=== PATIENT | female | born 1950 | race African-American/Black ===

== ENCOUNTER 2024-01-29 13:37 | Emergency (ER) | payer MEDICARE ==
[~2024-01-29] VITALS: Ht 157.5 cm; Wt 45.0 kg
[2024-01-29 13:49] VITALS: BP 141/59
[2024-01-29] MEDS ORDERED: SODIUM CHLORIDE 0.9% 1,000 ML IV ONE (13:50)
[2024-01-29] MEDS ORDERED: VANCOMYCIN HCL 1 GM in SODIUM CHLORIDE 0.9% 250 ML IV ONE (13:50)
[2024-01-29] MEDS ORDERED: cefTRIAXone SODIUM 2 GM in SODIUM CHLORIDE 0.9% 100 ML IV ONE (13:50)
[2024-01-29 14:14] VITALS: BP 198/156
[2024-01-29] MEDS ORDERED: AMLODIPINE BESYL5 MG PO (16:08)
[2024-01-29] MEDS ORDERED: DICLOFENAC SODI75 MG PO (16:09)
[2024-01-29 16:16] VITALS: BP 0/0
== END 2024-01-29 17:52 | disposition expired ==
LOC: ED 13:37
PROC: 5A12012 Performance of Cardiac Output, Single, Manual (ICD-10-PCS; principal; 2024-01-29)
PROC: 5A2204Z Restoration of Cardiac Rhythm, Single (ICD-10-PCS; 2024-01-29)
DX: I46.9 Cardiac arrest, cause unspecified (principal); I49.01 Ventricular fibrillation; B87.1 Wound myiasis; S81.802A Unspecified open wound, left lower leg, initial encounter; S81.801A Unspecified open wound, right lower leg, initial encounter; X58.XXXA Exposure to other specified factors, initial encounter